=== PATIENT | male | born 1950 | race Caucasian/White ===

== ENCOUNTER 2017-10-10 21:30 | Inpatient (IN) | payer OTHER ==
[~2017-10-10] VITALS: Ht 182.9 cm; Wt 106.4 kg
[~2017-10-10 21:30] MED LIST: ATORVASTATIN CA40 MG PO; BENADRYL25 MG PO; COREG12.5 M1 PO; COREG25 M1 PO; CRESTOR10 MG PO; CYANOCOBALAM1000 MCG PO; FERROUS SULFAT325 MG PO; FLOMAX0.4 MG PO; FOLIC ACID0.4 MG PO; HELIOCARE240 MG PO; IRON325 M1 PO; KRILL OIL 3001 EACH PO; MOVE FREE JOIN1 EACH PO; MYFORTIC360 MG PO; NORVASC5 MG PO; OXYCODONE HCL5 MG PO; OXYCODONE-ACET1 EACH PO; PROGRAF0.5 MG PO; PROGRAF1 MG PO; PROSCAR5 MG PO; PROTONIX40 MG PO; SENNA PLUS TAB1 EACH PO; SUPER B COMPL400 MCG PO; TURMERIC/CURCUMIN PO; VITAMIN B-3 PO; VITAMIN B12-FO1 EACH PO; VITAMIN D2000 UNIT PO; XARELTO10 MG PO; ZETIA10 MG PO; ZYLOPRIM100 MG PO; ZYLOPRIM300 MG PO
[2017-10-11 07:40] VITALS: BP 126/70
[2017-10-11 12:45] VITALS: BP 138/72
[2017-10-11 13:40] VITALS: BP 169/73
[2017-10-11 15:09] VITALS: BP 133/74
[2017-10-11 20:22] VITALS: BP 135/75
[2017-10-12] VITALS (7 sets, daily range): BP systolic 113–158; BP diastolic 57–89
[2017-10-12 06:42] LABS: HEMATOCRIT 39.7 % (38.0-50.0); HEMOGLOBIN 12.7 G/DL (12.5-16.6); MCV 91.7 FL (86-99)
[2017-10-12 07:09] LABS: CHLORIDE 103 MEQ/L (99-109); GFR ESTIMATE (CALCULATED) > 59 mL/min/ (58.99-99999); GLUCOSE 122 mg/dL (70-99); POTASSIUM 4.9 MEQ/L (3.7-5.4); SODIUM 138 MEQ/L (136-147); UREA NITROGEN (BUN) 16 mg/dL (9-23)
[2017-10-13 03:42] VITALS: BP 131/67
[2017-10-13 06:04] LABS: HEMOGLOBIN 11.3 G/DL (12.5-16.6); MCV 91.8 FL (86-99)
[2017-10-13 07:20] VITALS: BP 121/63
[2017-10-13] MEDS ORDERED: BENADRYL25 MG PO (10:59)
[2017-10-13] MEDS ORDERED: TYLENOL REGULA325 MG PO (11:01)
[2017-10-13] MEDS ORDERED: SENNA PLUS TAB1 EACH PO (11:01)
[2017-10-13] MEDS ORDERED: ELIQUIS2.5 MG PO (11:02)
[2017-10-13] MEDS ORDERED: OXYCODONE HCL5 MG PO (11:02)
[2017-10-13 11:05] VITALS: BP 129/65
== END 2017-10-13 14:28 | DRG 470 ==
LOC: ENRESERV 21:30 → 2SOUTH 10-11 06:30 → 3WEST 10-11 12:37 → 2SOUTH 10-11 13:01 → 3WEST 10-13 14:28
PROVIDERS: Orthopaedic Surgery
PROC: 0SRC0J9 Replacement of Right Knee Joint with Synthetic Substitute, Cemented, Open Approach (ICD-10-PCS; principal; 2017-10-11)
DX: M17.11 Unilateral primary osteoarthritis, right knee (principal); G89.29 Other chronic pain; Z68.31 Body mass index [BMI] 31.0-31.9, adult; M25.561 Pain in right knee
CPT/HCPCS: 80048; 85014; 85018; C1713; J0131; J0690; J1885; J2250; J2405; J2795; J3010; J7050; J7120; J7507; J7518